=== PATIENT | male | born 1960 | race African-American/Black ===

== ENCOUNTER 2020-07-31 16:29 | Emergency (ER) | payer MEDICAID ==
[~2020-07-31] VITALS: Ht 182.9 cm; Wt 114.0 kg
[2020-07-31 16:50] VITALS: BP 138/78
== END 2020-07-31 18:21 | disposition left against medical advice (07) ==
LOC: EDBD 16:29 → ER 16:29
DX: F16.188 Hallucinogen abuse with other hallucinogen-induced disorder (principal); R45.1 Restlessness and agitation; Z78.1 Physical restraint status; F15.10 Other stimulant abuse, uncomplicated
CPT/HCPCS: 99283

== ENCOUNTER 2021-02-09 13:48 | Emergency (ER) | payer MEDICAID ==
[~2021-02-09] VITALS: Ht 180.3 cm; Wt 120.0 kg
[2021-02-09 13:55] VITALS: BP 165/96
== END 2021-02-09 14:08 | disposition left against medical advice (07) ==
LOC: ER 13:48
DX: Z53.21 Procedure and treatment not carried out due to patient leaving prior to being seen by health care provider (principal)